=== PATIENT | female | born 1980 | race Two or more races ===

== ENCOUNTER 2021-09-27 17:50 | Emergency (ER) | payer OTHER ==
[~2021-09-27] VITALS: Ht 162.6 cm; Wt 93.4 kg
[~2021-09-27 17:50] MED LIST: FIORICET 50-321 EACH PO; ORPH100T PO
[2021-09-27] MEDS ORDERED: DICLOFENAC SODI75 MG PO (18:19)
== END 2021-09-27 18:57 | disposition home or self-care (01) ==
LOC: ER 17:50
DX: M94.0 Chondrocostal junction syndrome [Tietze] (principal)